=== PATIENT | female | born 1950 | race Caucasian/White ===

== ENCOUNTER 2022-07-04 17:44 | Emergency (ER) | payer OTHER, MEDICAID ==
[~2022-07-04] VITALS: Ht 166.1 cm; Wt 66.5 kg
[2022-07-04 18:07] VITALS: BP 154/87
--- NOTE | 2022-07-04 18:22 | NUR ---
EDWIN. HANDED ON URINE CUP.
[2022-07-04 19:34] LABS: ALBUMIN 3.7 g/dL (3.4-5.0); ANION GAP 11.4 (8-16); ASPARTATE AMINOTRANSFERASE 32 U/L (15-37); CARBON DIOXIDE 27.2 mmol/L (21-32); CHLORIDE 95 mmol/L (98-107); POTASSIUM 4.6 mmol/L (3.5-5.1); SODIUM SERUM 129 mmol/L (136-145); UREA NITROGEN, BLOOD 13 mg/dL (7-18)
[2022-07-04 19:38] LABS: GLUCOSE 516 mg/dL (74-106)
[2022-07-04 19:39] LABS: EOSINOPHILS # (AUTO) 0.1 K/uL (0-0.4); EOSINOPHILS % (AUTO) 1.4 % (0.0-4.0); HEMATOCRIT 43.1 % (36-48); LYMPHOCYTES # (AUTO) 2.1 K/uL (2.5-16.5); LYMPHOCYTES % (AUTO) 42.6 % (20.5-51.1); MEAN CORPUSCULAR HEMOGLOBIN 31 pg (27-31); MEAN CORPUSCULAR HGB CONC 35 g/dL (33-37); MONOCYTES # (AUTO) 0.4 K/uL (0.8-1.0); MONOCYTES % (AUTO) 7.3 % (1.7-9.3); NEUTROPHILS # (AUTO) 2.4 K/uL (1.8-7.7); NEUTROPHILS % (AUTO) 47.7 % (42.2-75.2); PLATELET COUNT (AUTO) 118 K/uL (140-450); RED BLOOD CELL COUNT(AUTO) 4.84 MIL/uL (4.20-5.40); RED CELL DISTRIBUTION WIDTH 13.3 % (11.6-13.7); WHITE BLOOD COUNT (AUTO) 4.9 K/uL (4.8-10.8)
--- NOTE | 2022-07-04 19:42 | NUR ---
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
--- NOTE | 2022-07-04 19:42 | NUR ---
PT AMBULATED TO BED 1
--- NOTE | 2022-07-04 20:00 | NUR ---
DR DUNN AT BEDSIDE EVALUATING PT, PT C/O VAGINAL ITICHING,DR BRUMFIELD PERFORMED VAGINAL EXAM WITH RAGHAVENDRA HOWARD RN AT BEDSIDE. PT TOLERATED WELL.
--- NOTE | 2022-07-04 20:00 | NUR ---
C/O VAGINAL PAIN, LOWER ABDOMINAL PAIN X 3 MONTHS. +INCREASED THRIST. PATIENT STATED THAT SHE ALSO FEELS 4/10 PAIN IN HER LOWER EXTREMITIES THAT COMES AND GOES. PATIENT AAOX4 AND AMBULATORY. PLACED IN BED AND GOWN WITH FURNACE WORKER. ALL NEEDS MET PMH: HTN, THYROID, HLD NKA
[2022-07-04] MEDS ORDERED: INSULIN REGULAR, HUMAN 100 UNIT/ML VIAL SUBQ ONE (20:05)
[2022-07-04] MEDS ORDERED: FLUCONAZOLE 100 MG TAB PO ONE (20:05)
[2022-07-04] MEDS ORDERED: NACL 0.9% 1,000 ML IV ONE (20:05)
[2022-07-04] MEDS ORDERED: CRUSHER, PILL MC ONE (20:45)
--- NOTE | 2022-07-04 21:55 | NUR ---
BS CHECKED 396. MADE AWARE.
[2022-07-04] MEDS ORDERED: METF-1243 PO (22:21)
[2022-07-04 22:36] VITALS: BP 150/77
--- NOTE | 2022-07-04 22:36 | NUR ---
Patient discharged with v/s stable. Written and verbal after care instructions given and explained. Patient alert, oriented and verbalized understanding of instructions. Ambulatory with steady gait. All questions addressed prior to discharge. ID band removed. Patient advised to follow up with PMD. Rx SENT TO PHARMACY. Patient educated on indication of medication including possible reaction and side effects. Opportunity to ask questions provided and answered.
== END 2022-07-04 22:36 | disposition home or self-care (01) ==
LOC: MED 17:44
DX: E11.65 Type 2 diabetes mellitus with hyperglycemia (principal); I10 Essential (primary) hypertension; Z79.84 Long term (current) use of oral hypoglycemic drugs; Z98.890 Other specified postprocedural states
CPT/HCPCS: 36415; 80053; 81002; 85025; 96360; 96372; 99283; J1815; J7030

== ENCOUNTER 2022-11-02 16:50 | Emergency (ER) | payer OTHER, MEDICAID ==
[~2022-11-02] VITALS: Ht 172.7 cm; Wt 67.1 kg
[~2022-11-02 16:50] MED LIST: METF-1243 PO
[2022-11-02 17:16] VITALS: BP 172/68
--- NOTE | 2022-11-02 17:24 | NUR ---
PT AMB TO BED 7.
--- NOTE | 2022-11-02 17:41 | NUR ---
72 Y/O F BIB SELF C/O LEFT CHEST PAIN 5/10 RADIATES TO NECK AND HEAD X 1 WEEK, BLOOD SUGAR 167 AT THIS TIME. HER DOCTOR CHANGED LEVOTHYROXIN FROM 100 TO 137 MCG LAST WEEK. PMH: DM, HTN, HLD, THYROID
[2022-11-02 18:27] LABS: BASOPHILS % (AUTO) 0.7 % (0.0-2.0); EOSINOPHILS # (AUTO) 0.1 K/uL (0-0.4); EOSINOPHILS % (AUTO) 1.2 % (0.0-4.0); HEMATOCRIT 38.8 % (36-48); HEMOGLOBIN 13.2 g/dL (12.0-16.0); LYMPHOCYTES # (AUTO) 2.5 K/uL (2.5-16.5); MEAN CORPUSCULAR HEMOGLOBIN 31 pg (27-31); MEAN CORPUSCULAR HGB CONC 34 g/dL (33-37); MEAN CORPUSCULAR VOLUME 89.6 fL (80-94); MONOCYTES # (AUTO) 0.6 K/uL (0.8-1.0); MONOCYTES % (AUTO) 10.1 % (1.7-9.3); NEUTROPHILS # (AUTO) 3.2 K/uL (1.8-7.7); PLATELET COUNT (AUTO) 208 K/uL (140-450); RED BLOOD CELL COUNT(AUTO) 4.33 MIL/uL (4.20-5.40); RED CELL DISTRIBUTION WIDTH 14.5 % (11.6-13.7); WHITE BLOOD COUNT (AUTO) 6.4 K/uL (4.8-10.8)
[2022-11-02 18:52] LABS: ASPARTATE AMINOTRANSFERASE 20 U/L (15-37)
[2022-11-02 18:54] LABS: ALBUMIN 4.4 g/dL (3.4-5.0); CARBON DIOXIDE 29.2 mmol/L (21-32); CHLORIDE 102 mmol/L (98-107); GLUCOSE 124 mg/dL (74-106); POTASSIUM 4.2 mmol/L (3.5-5.1); SODIUM SERUM 141 mmol/L (136-145); TOTAL BILIRUBIN 0.5 mg/dL (0.0-1.0); UREA NITROGEN, BLOOD 23 mg/dL (7-18)
--- NOTE | 2022-11-02 19:18 | NUR ---
GAVE REPORT TO MIKEY SHEPPARD.
[2022-11-02] MEDS ORDERED: IBUP-2213 PO (21:23)
[2022-11-02 21:47] VITALS: BP 145/74
--- NOTE | 2022-11-02 21:48 | NUR ---
Patient discharged with v/s stable. Written and verbal after care instructions given and explained. New order for ibuprofen. Patient verbalized understanding. Ambulatory with steady gait. All questions addressed prior to discharge. Advised to follow up with PMD.
== END 2022-11-02 21:48 | disposition home or self-care (01) ==
LOC: MED 16:50
DX: R07.89 Other chest pain (principal); I10 Essential (primary) hypertension; Z79.899 Other long term (current) drug therapy
CPT/HCPCS: 36415; 71045; 80053; 82948; 84484; 85025; 93005; 99285; Q0092

== ENCOUNTER 2023-01-02 17:59 | Emergency (ER) | payer MEDICARE, OTHER ==
[~2023-01-02] VITALS: Ht 165.1 cm; Wt 61.2 kg
[~2023-01-02 17:59] MED LIST changes: +IBUP-2213 PO
[2023-01-02 18:15] VITALS: BP 152/75
--- NOTE | 2023-01-02 18:40 | NUR ---
ASSUMED PATIENT CARE, NURSING ASSESSMENT COMPLETED.
--- NOTE | 2023-01-02 18:41 | NUR ---
SEEN AND EVALUATED BY , MSE COMPLETED.
[2023-01-02] MEDS ORDERED: FLUORESCEIN OPTH STRIP 1 MG OP ONE (18:50)
[2023-01-02] MEDS ORDERED: ERYT5OIN58 OP (19:09)
[2023-01-02 19:24] VITALS: BP 152/75
--- NOTE | 2023-01-02 19:25 | NUR ---
Patient discharged with v/s stable. Written and verbal after care instructions given and explained. Patient alert, oriented and verbalized understanding of instructions. Ambulatory with steady gait. All questions addressed prior to discharge. ID band removed. Patient advised to follow up with PMD. Rx of ERYTHROMYCIN given. Patient educated on indication of medication including possible reaction and side effects. Opportunity to ask questions provided and answered.
== END 2023-01-02 19:25 | disposition home or self-care (01) ==
LOC: MED 17:59
DX: H16.001 Unspecified corneal ulcer, right eye (principal); E11.9 Type 2 diabetes mellitus without complications; I10 Essential (primary) hypertension; E03.9 Hypothyroidism, unspecified; Z79.4 Long term (current) use of insulin; Z79.899 Other long term (current) drug therapy
CPT/HCPCS: 99283

== ENCOUNTER 2023-05-19 12:55 | Emergency (ER) | payer MEDICARE, OTHER ==
[~2023-05-19] VITALS: Ht 165.1 cm; Wt 68.0 kg
[~2023-05-19 12:55] MED LIST changes: +ERYT5OIN58 OP
[2023-05-19 13:20] VITALS: BP 137/75; PULSE 71; RESP 16; TEMP 97.1; O2SAT 99
[2023-05-19] MEDS ORDERED: NITR100C7 PO (16:18)
[2023-05-19] MEDS ORDERED: FLUC150T PO (16:18)
[2023-05-19] MEDS ORDERED: PYR100 PO (16:18)
[2023-05-19 16:25] LABS: APPEARANCE,URINE CLEAR (CLEAR); BILIRUBIN,URINE NEGATIVE (NEGATIVE); BLOOD, URINE NEGATIVE (NEGATIVE); COLOR,URINE YELLOW (YELLOW); LEUKOCYTE ESTERASE ,URINE 1+ (NEGATIVE); NITRITE, URINE NEGATIVE (NEGATIVE); PROTEIN,URINE NEGATIVE (NEGATIVE); UGLUCOSE NEGATIVE (NEGATIVE); UROBILINOGEN,URINE 0.2 EU/dL (0.2 - 1)
[2023-05-19 16:33] VITALS: O2SAT 99
[2023-05-19 16:38] LABS: BACTERIA,URINE FEW /HPF (None Seen); MUCUS,URINE 1+ /LPF (None Seen); RBC,URINE 0-5 /HPF (0-5); SQUAMOUS EPITHELIAL CELL,UR 20-50 /LPF (0-3 (FEW)); TRICHOMONAS,URINE None Seen /HPF (None Seen); WBC,URINE 0-5 /HPF (0-5); YEAST,URINE None Seen /HPF (None Seen)
[2023-05-19 17:00] VITALS: BP 137/75; PULSE 71; RESP 16; TEMP 97.1; O2SAT 99
== END 2023-05-19 17:00 | disposition home or self-care (01) ==
LOC: MED 12:55
DX: N39.0 Urinary tract infection, site not specified (principal); N76.0 Acute vaginitis; E03.9 Hypothyroidism, unspecified; E11.9 Type 2 diabetes mellitus without complications; I10 Essential (primary) hypertension; Z79.4 Long term (current) use of insulin; Z79.899 Other long term (current) drug therapy
CPT/HCPCS: 76856; 81001; 87086; 87210; 99284; Q0092